=== PATIENT | female | born 1965 | race Hispanic/Latino ===

== ENCOUNTER → 2019-02-18 | Day surgery (SDC) | payer BC ==
[2019-02-15 17:14] LABS: BASOPHILS % 0.5 % (0.0-1.0); EOSINOPHILS # (AUTO) 0.2 (0.0-0.4); EOSINOPHILS % 3.7 % (0.0-6.0); HEMATOCRIT 39.9 % (34.2-44.1); HEMOGLOBIN 12.8 g/dL (12.0-16.0); LYMPHOCYTES # (AUTO) 1.7 (1.0-3.2); LYMPHOCYTES % 38.8 % (18.0-39.1); MEAN CORPUSCULAR HEMOGLOBIN 28.8 pg (28-32); MEAN CORPUSCULAR HGB CONC 32.1 g/dL (31-35); MEAN CORPUSCULAR VOLUME 89.9 fL (81-99); MONOCYTES # (AUTO) 0.4 (0.2-0.8); MONOCYTES % 8.6 % (4.4-11.3); NEUTROPHILS # (AUTO) 2.1 (2.1-6.9); NEUTROPHILS % 48.2 % (38.7-80.0); PLATELET COUNT 259 x10e3/uL (140-360); RED BLOOD COUNT 4.44 x10e6/uL (3.6-5.1); RED CELL DISTRIBUTION WIDTH 12.4 % (11.7-14.4)
[~2019-02-18] MED LIST: ATORVASTATIN CA20 MG PO; CLOPIDOGREL75 MG PO; DEXTROSE 5%/LACTATED RINGERS 1,000 ML IV ONE; FENTANYL CITRATE/PF 100MCG/2 ML INJ ONE; GLIPIZIDE5 MG PO; HYOSCYAMINE 0.125 MG TAB ONE; KETAMINE HCL INJ 50 MG/ML 10 ML VIAL ONE; LISINOPRIL2.5 MG PO; METOCLOPRAMIDE HCL 10 MG/2ML VIAL ONE; METOPROLOL TART25 MG PO; MIDAZOLAM HCL 2 MG/2 ML VIAL ONE; OZEMPIC INJ; PROPOFOL IV EMULSION 10 MG/ML 50 ML VIAL ONE; VITAMIN D1000 UNI1 PO; XIGDUO XR PO
[2019-02-18 12:25] VITALS: BP 135/84
--- NOTE | 2019-02-18 17:28 | Operative Report ---
DATE OF PROCEDURE: 02/18/2019 SURGEON: Bonifacio Gibbons MD PROCEDURE: Colonoscopy with polypectomy. INDICATIONS FOR COLONOSCOPY: Colorectal cancer screening. MEDICATIONS: The patient was done under MAC, please see anesthesiologist's note. PROCEDURE IN DETAIL: With the patient in left lateral decubitus position, a flexible fiberoptic Olympus colonoscope was inserted into the rectum with ease and advanced all the way to the cecum. The scope was then withdrawn slowly and mucosa overlying the cecum, ascending colon, and transverse colon appeared to be within normal limits. A minute polyp was removed per hot biopsy forceps from the proximal descending colon. An approximately 1 cm sessile flat polyp was noted in the distal descending, was somewhat of an irregular surface that was removed per snare electrocautery and site was tattooed. Two minute polyps were hot biopsied from the sigmoid colon. The rectum appeared to be within normal limits. The scope was then retroflexed into the distal rectum and the area around the dentate line appeared to be within normal limits. The scope was then straightened out, it was subsequently withdrawn, and the patient tolerated the procedure well. IMPRESSION: 1. Descending colon polyp, hot biopsied. 2. Distal descending colon polyp, approximately 1 cm in size, sessile flat, was somewhat of irregular overlying mucosa, removed per snare electrocautery and site was tattooed. 3. Sigmoid colon polyps x2, hot biopsied. PLAN: Follow up histology. Initiate high-fiber, low-fat diet. Initiate high-fiber supplement. Timing of followup colonoscopy pending pathology report. If path report is unremarkable, then she will need a followup colonoscopy in 3 years. Bonifacio Gibbons MD [facility] [place]/YOSSI /[id number] cc: Janay Brown DO
== END | disposition home or self-care (01) ==
LOC: OR 07:20
PROVIDERS: ATTEND Internal Medicine Gastroenterology
DX: R12 Heartburn (principal); R14.0 Abdominal distension (gaseous); E11.9 Type 2 diabetes mellitus without complications; I10 Essential (primary) hypertension; I25.10 Atherosclerotic heart disease of native coronary artery without angina pectoris; I25.2 Old myocardial infarction; Z95.5 Presence of coronary angioplasty implant and graft; E78.00 Pure hypercholesterolemia, unspecified; Z01.810 Encounter for preprocedural cardiovascular examination; Z01.812 Encounter for preprocedural laboratory examination; D12.4 Benign neoplasm of descending colon; D12.5 Benign neoplasm of sigmoid colon
CPT/HCPCS: 36415 ×2; 45384; 45385; 82948; 85025; 93005; J2250; J2704; J2765; J3010; J7121; 45378; 45381